=== PATIENT | male | born 1995 | race Caucasian/White ===

== ENCOUNTER 2016-12-26 21:27 | Emergency (ER) | payer OTHER ==
[~2016-12-26] VITALS: Wt 136.1 kg
[2016-12-26] MEDS ORDERED: ANAPROX DS550 MG PO (22:51)
[2016-12-26] MEDS ORDERED: CYCLOBENZAPRINE10 MG PO (22:51)
== END 2016-12-26 22:55 | disposition home or self-care (01) ==
LOC: ED 21:27
DX: S16.1XXA Strain of muscle, fascia and tendon at neck level, initial encounter (principal); S09.90XA Unspecified injury of head, initial encounter; Z88.0 Allergy status to penicillin; Z88.1 Allergy status to other antibiotic agents; V89.2XXA Person injured in unspecified motor-vehicle accident, traffic, initial encounter; Y93.89 Activity, other specified; Y92.413 State road as the place of occurrence of the external cause; Y99.9 Unspecified external cause status